=== PATIENT | female | born 1965 | race African-American/Black ===

== ENCOUNTER 2018-06-19 01:16 | Emergency (ER) | payer MEDICAID ==
--- NOTE | 2018-06-19 02:25 | ED Physician Chart ---
ED Chief Complaint/HPI - Patient Information Date Seen:: 06/19/18 Time Seen:: 01:20 Chief Complaint:: Weakness History of Present Illness:: onset x one day of weakness, near syncope, dizziness, and vertigo; pt denies trauma, LOC, ALOC, AMS, H/As, S/T, neck pain, cough, C/P, SOB, Abd. Pain, A/N/V/ D/C, fever, chills, or urinary s/s Allergies:: Allergies Allergy/AdvReac Type Severity Reaction Status Date / Time erythromycin base Allergy Verified 06/19/18 01:50 Vitals:: Vital Signs - 8 hr 06/19/18 01:20 HR 77 RR 18 BP 110/64 O2 Sat % 99 Historian:: Patient Review:: Nurse's Note Reviewed <Huang Fitch - Last Filed: 06/19/18 06:43> - Patient Information Allergies:: Allergies Allergy/AdvReac Type Severity Reaction Status Date / Time erythromycin base Allergy Verified 06/19/18 01:50 Vitals:: Vital Signs - 8 hr 06/19/18 06/19/18 01:20 06:22 Temp 97.8 F HR 77 72 RR 18 17 BP 110/64 122/79 O2 Sat % 99 99 <Shamar Castillo - Last Filed: 06/19/18 10:25> ED Review of Systems - Review of Systems General/Constitutional: No fever, No chills, No weight loss, Weakness, No diaphoresis, No edema, No loss of appetite Skin: No skin lesions, No rash, No bruising Head: No headache, No light-headedness Eyes: No loss of vision, No pain, No diplopia ENT: No earache, No nasal drainage, No sore throat, No tinnitus Neck: No neck pain, No swelling, No thyromegaly, No stiffness, No mass noted Cardio Vascular: No chest pain, No palpitations, No PND, No orthopnea, No edema Pulmonary: No SOB, No cough, No sputum, No wheezing GI: No nausea, No vomiting, No diarrhea, No pain, No melena, No hematochezia, No constipation, No hematemesis G/U: No dysuria, No frequency, No hematuria, No nacturia Clinical Instructor: No vaginal discharge, No abnormal vaginal bleed, No contraction Musculoskeletal: No bone or joint pain, No back pain, No muscle pain Endocrine: No polyuria, No polydipsia Psychiatric: No prior psych history, No depression, No anxiety, No suicidal ideation, No homicidal ideation, No auditory hallucination, No visual hallucination Hematopoietic: No bruising, No lymphadenopathy Allergic/Immuno: No urticaria, No angioedema Neurological: No syncope, No focal symptoms, Weakness, No paresthesia, No headache, No seizure, Dizziness, No confusion, Vertigo <Huang Fitch Mark Filed: 06/19/18 06:43> ED Past Medical History - Past Medical History Obtainable: Yes Past Medical History: No significant medical hx Family History: HTN Social History: Non Smoker, No Alcohol, No Drug Use, Single, Homeless Surgical History: None Psychiatricy History: None Medication: Reviewed <Huang Fitch Mark Filed: 06/19/18 06:43> Family Medical History - Family Member Mother Hx Family Cancer: Yes Other Medical History: pancreatic cancer Father Other Medical History: anemia <Huang Fitch Mark Filed: 06/19/18 06:43> ED Physical Exam - Physical Examination General/Constitutional: Awake, Well-developed, well-nourished, Alert, No distress, GCS 15, Non-toxic appearing, Ambulatory Head: Atraumatic Eyes: Lids, conjuctiva normal, PERRL, EOMI Other Eyes comments:: + Scleral Icterus Skin: Nl inspection, No rash, No skin lesions, No ecchymosis, Well hydrated, No lymphadenopathy Other Skin comments:: + Jaundice ENMT: External ears, nose nl, TM canals nl, Nasal exam nl, Lips, teeth, gums nl , Oropharynx nl, Tonsils nl Neck: Nontender, Full ROM w/o pain, No JVD, No nuchal rigidity, No bruit, No mass, No stridor Respiratory: Nl effort/Exclusion, Clear to Auscultation, No Wheeze/Rhonchi/Rales Cardio Vascular: RRR, No murmur, gallop, rubs, NL S1 S2, Carotid/Femoral/Distal pulses equal bilaterally GI: No tenderness/rebounding/guarding, No organomegaly, No hernia, Normal BS's, Nondistended, No mass/bruits, No McBurney tenderness Other GI comments:: no pulsatile masses : No CVA tenderness Extremities: No tenderness or effusion, Full ROM, normal strength in all extremities, No edema, Normal digits & nails Neuro/Psych: Alert/oriented, DTR's symmetric, Normal sensory exam, Normal motor strength, Judgement/insight normal, Mood normal, Normal gait, No focal deficits Misc: Normal back, No paraspinal tenderness <Huang Fitch - Last Filed: 06/19/18 06:43> ED Labs/Radiology/EKG Results - Lab Results Comments:: Reviewed - Radiology Results Comments:: Head CT Scan: NAD - EKG Interpretations EKG Time:: 02:45 Rate & Rhythm: 74; NSR Comments:: non-specific st-t changes <Huang Fitch - Last Filed: 06/19/18 06:43> - Lab Results Results: Laboratory Tests 06/19/18 06/19/18 06/19/18 01:28 02:40 02:40 WBC 4.2 L RBC 2.68 L Hgb 9.0 L Hct 26.4 L MCV 98.7 MCH 33.5 H MCHC Differential 33.9 RDW 15.8 Plt Count 50 L MPV 9.2 Add Manual Diff YES Neutrophils (Manual) 56 Lymphocytes 44 Platelet Estimate DECREASED PLATELETS PT 25.2 H INR 2.53 H Sodium Potassium Chloride Carbon Dioxide Anion Gap BUN Creatinine Est GFR ( Amer) Est GFR (Non-Af Amer) BUN/Creatinine Ratio Glucose Calcium Total Bilirubin AST ALT Alkaline Phosphatase Creatine Kinase Troponin I B-Natriuretic Peptide Total Protein Albumin Globulin Albumin/Globulin Ratio Triglycerides Cholesterol LDL Cholesterol Direct HDL Cholesterol Serum , Qual Urine Source RANDOM Urine Color YELLOW Urine Clarity HAZY Urine pH 6.0 Ur Specific Maribel 1.025 Urine Protein NEGATIVE Urine Glucose (UA) NEGATIVE Urine Ketones TRACE Urine Blood MODERATE H Urine Nitrate NEGATIVE Urine Bilirubin NEGATIVE Urine Urobilinogen 0.2 Ur Leukocyte Esterase LARGE H Urine RBC 5-10 H Urine WBC 6-10 H Ur Epithelial Cells MODERATE Calcium Oxalate Crystal MODERATE Urine Bacteria FEW 06/19/18 06/19/18 06/19/18 02:40 02:40 02:40 WBC RBC Hgb Hct MCV MCH MCHC Differential RDW Plt Count MPV Add Manual Diff Neutrophils (Manual) Lymphocytes Platelet Estimate PT INR Sodium 137 Potassium 3.8 Chloride 102 Carbon Dioxide 28.6 Anion Gap 10.2 BUN 14 Creatinine 0.5 L Est GFR ( Amer) > 60.0 Est GFR (Non-Af Amer) > 60.0 BUN/Creatinine Ratio 28.0 Glucose 138 H Calcium 9.3 Total Bilirubin 6.2 H AST 46 H ALT 23 Alkaline Phosphatase 176 H Creatine Kinase 104 Troponin I 0.01 B-Natriuretic Peptide 14.9 Total Protein 6.2 Albumin 2.5 L Globulin 3.7 Albumin/Globulin Ratio 0.7 L Triglycerides 49 Cholesterol 72 LDL Cholesterol Direct 19 L HDL Cholesterol 31 Serum , Qual Urine Source Urine Color Urine Clarity Urine pH Ur Specific Maribel Urine Protein Urine Glucose (UA) Urine Ketones Urine Blood Urine Nitrate Urine Bilirubin Urine Urobilinogen Ur Leukocyte Esterase Urine RBC Urine WBC Ur Epithelial Cells Calcium Oxalate Crystal Urine Bacteria 06/19/18 02:40 WBC RBC Hgb Hct MCV MCH MCHC Differential RDW Plt Count MPV Add Manual Diff Neutrophils (Manual) Lymphocytes Platelet Estimate PT INR Sodium Potassium Chloride Carbon Dioxide Anion Gap BUN Creatinine Est GFR ( Amer) Est GFR (Non-Af Amer) BUN/Creatinine Ratio Glucose Calcium Total Bilirubin AST ALT Alkaline Phosphatase Creatine Kinase Troponin I B-Natriuretic Peptide Total Protein Albumin Globulin Albumin/Globulin Ratio Triglycerides Cholesterol LDL Cholesterol Direct HDL Cholesterol Serum , Qual NEGATIVE Urine Source Urine Color Urine Clarity Urine pH Ur Specific Maribel Urine Protein Urine Glucose (UA) Urine Ketones Urine Blood Urine Nitrate Urine Bilirubin Urine Urobilinogen Ur Leukocyte Esterase Urine RBC Urine WBC Ur Epithelial Cells Calcium Oxalate Crystal Urine Bacteria - Radiology Results Comments:: CT abdomen and pelvis showed gallstones and probable gastroenteritis. Ultrasound showed a contracted gallbladder show gallstones could not be definitely visualized. <Shamar Castillo - Last Filed: 06/19/18 10:25> ED Assessment - Assessment General Assessment: Patient complains of low back pain and leg pain for 2 days. No trauma. Past medical history: Fatty liver; iron deficiency anemia; occasional syncope. Patient denies smoking or drinking alcohol. She stopped drinking alcohol more than 2 years ago. Patient is well-developed well-nourished in no acute distress. HEENT normal except for poor dental hygiene. Neck supple. Chest clear symmetrical breath sounds. Heart regular rhythm with a 2/6 systolic murmur. Abdomen bowel sounds present abdomen soft nontender no organomegaly. Extremities 3 out of 4 pretibial pitting edema. <Shamar Castillo - Last Filed: 06/19/18 10:25> ED Septic Shock - . Is Septic Shock (SBP<90, OR Lactate>4 mmol\L) present?: No - <6hrs of presentation: Vital Signs: Vital Signs - 8 hr 06/19/18 01:20 HR 77 RR 18 BP 110/64 O2 Sat % 99 <Huang Fitch - Last Filed: 06/19/18 06:43> - <6hrs of presentation: Vital Signs: Vital Signs - 8 hr 06/19/18 06/19/18 01:20 06:22 Temp 97.8 F HR 77 72 RR 18 17 BP 110/64 122/79 O2 Sat % 99 99 <Shamar Castillo - Last Filed: 06/19/18 10:25> ED Reassessment (Disposition) - Reassessment Reassessment Condition:: Improved - Diagnosis Diagnosis:: Weakness; Dizziness; Vertigo; Anemia; Leukopenia; UTI; Sepsis; Hematuria <Huang Fitch - Last Filed: 06/19/18 06:43> - Reassessment Reassessment:: Patient has anemia, an isolated hyperbilirubinemia, hypoalbuminemia, peripheral edema and gallstones. I cannot find an acute medical problem which requires hospitalization. - Aftercare/Follow up Instructions Aftercare/Follow-Up Instructions:: Refer to Discharge Instructions - Patient Disposition Discharge/Transfer:: Home Condition at Disposition:: Stable, Unchanged <Shamar Castillo - Last Filed: 06/19/18 10:25>
[2018-06-19 02:58] LABS: HEMATOCRIT 26.4 % (41.0-60); MEAN CELL VOLUME 98.7 fl (81-100); MEAN CORPUSCULAR HEMOGLOBIN 33.5 pg (27.0-31.0); MEAN CORPUSCULAR HGB CONC 33.9 pg (28.0-36.0); MEAN PLATELET VOLUME 9.2 fl; PLATELET COUNT 50 Th/cmm (150-400); RED BLOOD COUNT 2.68 Mil/cmm (3.80-5.10); RED CELL DISTRIBUTION WIDTH 15.8 % (11.5-20.0); WHITE BLOOD COUNT 4.2 Th/cmm (4.8-10.8)
[2018-06-19 03:02] LABS: INR 2.53 (0.5-1.4); PROTHROMBIN TIME (TEST) 25.2 SECONDS (9.5-11.5)
[2018-06-19 03:07] LABS: ALB/GLOB RATIO 0.7 (1.0-1.8); ALBUMIN 2.5 gm/dL (3.7-5.3); ALKALINE PHOSPHATASE 176 U/L (34-104); ANION GAP 10.2 (7.0-16.0); BILIRUBIN,TOTAL 6.2 mg/dL (0.3-1.0); BUN - UREA NITROGEN 14 mg/dL (7-25); CALCIUM SERUM 9.3 mg/dL (8.6-10.3); CARBON DIOXIDE 28.6 mEq/L (21.0-31.0); CHLORIDE 102 mEq/L (98-107); CHOLESTEROL 72 mg/dL (<200); CREATININE - SERUM 0.5 mg/dL (0.6-1.2); CREATININE KINASE 104 U/L (30-223); GFR AFRICAN-AMERICAN > 60.0 ml/min (>90); GFR NON AFRICAN-AMERICAN > 60.0 ml/min; GLUCOSE 138 mg/dL (70-105); HDL -HIGH DENSITY LIPOPROTEIN 31 mg/dL (23-92); POTASSIUM SERUM 3.8 mEq/L (3.5-5.1); SGOT 46 U/L (13-39); SGPT/ALT 23 U/L (7-52); SODIUM SERUM 137 mEq/L (136-145); TOTAL PROTEIN,SERUM 6.2 gm/dL (6.0-8.3); TRIGLYCERIDES 49 mg/dL (<150)
[2018-06-19 04:03] LABS: LYMPHOCYTE 44 % (20-50); NEUTROPHILS 56 % (40-80); PLATELET ESTIMATE DECREASED PLATELETS (NORMAL)
[2018-06-19 05:44] LABS: URINE SOURCE RANDOM
[2018-06-19 05:45] LABS: URINE BILIRUBIN NEGATIVE (NEGATIVE); URINE BLOOD MODERATE (NEGATIVE); URINE GLUCOSE (UA) NEGATIVE (NEGATIVE); URINE KETONE TRACE mg/dL (NEGATIVE); URINE LEUKOCYTE ESTERASE LARGE (NEGATIVE); URINE MICROSCOPIC INDICATED? YES; URINE NITRATE NEGATIVE (NEGATIVE); URINE PROTEIN NEGATIVE (NEGATIVE); URINE UROBILINOGEN 0.2 E.U./dL (0.2 - 1.0)
[2018-06-19 05:51] LABS: URINE CLARITY HAZY (CLEAR); URINE COLOR YELLOW
[2018-06-19 05:59] LABS: URINE BACTERIA FEW /hpf (NONE SEEN); URINE EPITHELIAL CELLS MODERATE /lpf (FEW)
[2018-06-19] MEDS ORDERED: cefTRIAXone 1 GM in Sodium Chloride 0.9% 50 ML IV ONE (06:33)
--- NOTE | 2018-06-19 08:09 | Diagnostic Imaging Report ---
CT abdomen and pelvis without intravenous contrast Indication: Elevated liver function tests Comparison: None, Technique: Axial images were obtained from the lung bases to the bilateral proximal femurs without IV contrast. Coronal reconstructions were made. total DLP: 429, CTDI7.9 FINDINGS: Hypoventilatory and atelectatic changes of the lung bases are noted. Assessment of the solid organs is limited due to lack of IV contrast. 2 mm high-density lesion of the dome liver is noted probably a granuloma.. There appear to be gallstones. There is mild splenomegaly. Limited assessment of pancreas demonstrate no obvious focal lesions. No evidence of hydronephrosis or nephrolithiasis. There is soft tissue density measuring 4.2 cm AP x 1.5 cm transverse along the left adrenal gland region. Distended stomach is noted. There is diffuse haziness and inflammatory change throughout the fat planes of the abdomen and pelvis. Partially visualized air-filled appendix is noted. Inflammatory changes seen along the margins of the duodenum. Trace free fluid is noted. No free air. Degenerative changes of the spine are noted. There is old compression deformity involving the superior endplate of T12. There may be a small umbilical hernia. Focal bowel herniation is region is less likely but cannot be excluded. Anasarca is noted. IMPRESSION: Diffuse inflammatory changes along the upper abdomen more pronounced on the right side extending inferiorly throughout the mesentery and into the pelvis. There is also suggestion of duodenal wall thickening. A dilated stomach is also noted containing food contents. Findings favor infectious inflammatory process possible gastroenteritis. Gallstones are also noted. A follow-up ultrasound is recommended for further assessment. Suboptimal visualization of the appendix ,however, no definite evidence of acute appendicitis at this time. There may be a small umbilical hernia. Focal bowel herniation this region is considered less likely but cannot be excluded. Correlation should be made with clinical findings. Prominent soft tissue density/mass of the left upper quadrant posteriorly along the left adrenal region. Findings may be due to an enlarged left adrenal mass. Splenomegaly. 2 mm granuloma along the dome of the liver. Recommend short-term follow-up examination with IV and oral contrast.
--- NOTE | 2018-06-19 09:25 | Diagnostic Imaging Report ---
Head CT without intravenous contrast Indication: Dizziness and weakness Comparison: None Technique: Axial images were obtained from the vertex to the skull base without IV contrast. Coronal reconstructions were made. Total DLP: 623, CTDI34.4 FINDINGS: Images of the brain obtained without contrast demonstrate no evidence of an acute hemorrhage. Faint bilateral basal ganglia calcifications are noted. The ventricles and basal cisterns are patent. No mass effect or midline shift. No evidence of a skull fracture or focal soft tissue swelling. The visualized paranasal sinuses are clear. IMPRESSION: No acute intracranial abnormality.
--- NOTE | 2018-06-19 11:11 | Diagnostic Imaging Report ---
Ultrasound abdomen HISTORY: Abdominal pain, gallstones COMPARISON: CT abdomen and pelvis on 06/19/2018 Technique: Sonography of the abdomen was performed in multiple planes. FINDINGS: The liver enhances a heterogeneous echotexture and measures 12.4 cm. No evidence of focal lesions. The gallbladder is contracted, limiting its evaluation. There is mild prominence of the gallbladder wall. Gallbladder sludge is noted. There are probable tiny gallstones. The common bile measures 2 mm. Evaluation of pancreas is limited due to bowel gas. The pancreatic duct is borderline prominent. The right kidney measures 11.5 cm. The left kidney measures 12.3 cm. No evidence of focal lesions or hydronephrosis. The spleen measures 13.8 cm. Atherosclerosis is noted. IMPRESSION: Contracted gallbladder, limiting its evaluation. There may be small amount of gallbladder sludge and tiny gallstones. Mild prominence of the gallbladder wall is noted which may be accentuated by contraction. Please correlate clinically. If necessary repeat exam after fasting may be obtained. Borderline prominent pancreatic duct. The significance of this finding should be correlated clinically. Mildly heterogeneous liver which may reflect underlying hepatocellular disease. Mild splenomegaly. Atherosclerotic vascular disease.
== END 2018-06-19 12:40 | disposition home or self-care (01) ==
LOC: EDBD 01:16 → ER 01:16
DX: A41.9 Sepsis, unspecified organism (principal); D64.9 Anemia, unspecified; N39.0 Urinary tract infection, site not specified; D72.819 Decreased white blood cell count, unspecified; R42 Dizziness and giddiness; R31.9 Hematuria, unspecified; R17 Unspecified jaundice; Z88.1 Allergy status to other antibiotic agents
CPT/HCPCS: 99284; 96365; 93005; 76700; 70450; 74176; 84484; 83880; 36415; 85007; 85025; 85610; 87086; 81001; 82550; 84703; 80053; 80061; 87081; J0696; Z7502